=== PATIENT | male | born 1965 | race African-American/Black ===

== ENCOUNTER 2017-01-12 19:36 | Emergency (ER) | payer MEDICAID ==
[~2017-01-12] VITALS: Ht 175.3 cm; Wt 79.2 kg
[~2017-01-12 19:36] MED LIST: ACET325T14 PO; AMLO5TAB2 PO; ASPI-496 PO; ATOR20TA9 PO; CEPH-376 PO; ENAL20TA PO; ERGO500017 PO; FURO40TA6 PO; GABA300C10 PO; HYDR-3341 PO; IBUP-1222 PO; INSU100C5 SQ-INSULIN; INSU100V8 SQ; LISI-170 PO; MUPI22OI2 TP; SPIR25TA PO
[2017-01-12 21:27] LABS: BLOOD UREA NITROGEN 26 mg/dL (7-18)
[2017-01-12 21:50] VITALS: BP 176/90
== END 2017-01-12 22:39 | disposition home or self-care (01) ==
LOC: ED 21:18
DX: E11.65 Type 2 diabetes mellitus with hyperglycemia (principal); E11.42 Type 2 diabetes mellitus with diabetic polyneuropathy; L89.891 Pressure ulcer of other site, stage 1; L89.892 Pressure ulcer of other site, stage 2; I86.1 Scrotal varices; I10 Essential (primary) hypertension; E87.5 Hyperkalemia
CPT/HCPCS: 36415; 76870; 80048; 82040; 85025; 99285

== ENCOUNTER → 2020-08-09 | Outpatient (CLI) | payer MEDICARE ==
[~2020-08-09] MED LIST changes: +AMLO-150 PO; -AMLO5TAB2 PO; +ATOR20TA37 PO; -ATOR20TA9 PO; +CALC667T4 PO; -ENAL20TA PO; +ENAL20TA9 PO; +INSU100I18 SC; +INSU100I34 SC; +LISI5TAB7 PO; +MULT-658 PO; +VALS80TA3 PO
[2020-08-09 10:36] LABS: BASOPHILS % (AUTO) 1 % (0-1); EOSINOPHILS % (AUTO) 2 % (1-7); LYMPHOCYTES % (AUTO) 36 % (22-44); MD NO; MEAN CORPUSCULAR HGB CONC 32.6 g/dL (33.2-36.2); MEAN PLATELET VOLUME 9.7 fL (7.4-10.4); MONOCYTES % (AUTO) 13 % (2-9); NEUTROPHILS % (AUTO) 47 % (42-75); PLATELET COUNT 151 x10^3/uL (130-400); RED BLOOD COUNT 3.69 x10^6/uL (4.38-5.82); RED CELL DISTRIBUTION WIDTH 12.2 % (9.4-14.8)
[2020-08-09 10:43] LABS: INTERNATIONAL NORMALIZED RATIO 1.07 (0.93-1.1); PROTHROMBIN TIME 11.4 Seconds (9.6-11.5)
[2020-08-09 10:44] LABS: ALBUMIN 3.6 g/dL (3.4-5.0); ANION GAP 5 mmol/L (5-15); CALCIUM 8.7 mg/dL (8.5-10.1); CHLORIDE 98 mmol/L (98-107)
[2020-08-09 10:50] LABS: ALANINE AMINOTRANSFERASE 28 U/L (12-78); ALKALINE PHOSPHATASE 99 U/L (45-117); BILIRUBIN,TOTAL 0.5 mg/dL (0.2-1.0); CREATININE 8.48 mg/dL (0.7-1.3); TOTAL PROTEIN 7.3 g/dL (6.4-8.2)
== END | disposition home or self-care (01) ==
LOC: STAR 09:02
PROVIDERS: ATTEND Surgery
DX: Z01.812 Encounter for preprocedural laboratory examination (principal); Z20.822 Contact with and (suspected) exposure to COVID-19; I51.7 Cardiomegaly
CPT/HCPCS: 80053; 85025; 85610; 85730; 87635; 93005